=== PATIENT | male | born 1945 | race Caucasian/White ===

== ENCOUNTER 2017-03-27 11:47 | Inpatient (IN) | payer MEDICARE ==
[~2017-03-27] VITALS: Ht 182.9 cm; Wt 125.4 kg
[2017-04-11] MEDS ORDERED: LOSA100T PO (08:54)
[2017-04-11] MEDS ORDERED: ZETI10TA5 PO (08:54)
[2017-04-11] MEDS ORDERED: METO25TA3 PO (08:54)
[2017-04-11] MEDS ORDERED: METF500T PO (08:54)
[2017-04-28] MEDS ORDERED: LACTATED RINGER'S 1000 ML IV PRN (06:45)
[2017-04-28] MEDS ORDERED: DEXAMETHASONE SOD PHOS 20 MG/5 ML VIAL IV SCH (06:45)
[2017-04-28] MEDS ORDERED: VANCOMYCIN 1000 MG/NS 250 ML (for <70 kg) IV SCH ×2 (06:45)
[2017-04-28] MEDS ORDERED: SODIUM CHLORID 0.9% 500 ML IV PRN (06:45)
[2017-04-28] MEDS ORDERED: CHLORHEXIDINE GLUCONATE 2 % 1 PACK (2 CLOTHS) TOPICAL PRN (06:45)
[2017-04-28] MEDS ORDERED: METOPROLOL TARTRATE 25 MG TAB PO PRN (06:45)
[2017-04-28] MEDS ORDERED: POVIDONE IODINE 5% (ANTISEPSIS KIT) 4 APPLICATIONS EACH NARE PRN (06:45)
[2017-04-28] MEDS ORDERED: ceFAZolin 2 GM PREMIX 50 ML IV SCH (06:45)
[2017-04-28] MEDS ORDERED: INSULIN HUMAN REGULAR 1,000 UNITS/10 ML VIAL SQ PRN (06:45)
[2017-04-28] MEDS ORDERED: POVIDONE IODINE 7.5% SCRUB 118 ML BOTTLE TOPICAL SCH (06:45)
[2017-04-28] MEDS ORDERED: CHLORHEXIDINE GLUCONATE 4% SOLN 120 ML BTL TOPICAL SCH (06:45)
[2017-04-28] MEDS ORDERED: ASPI81CH37 CHEW (06:48)
[2017-04-28] MEDS ORDERED: ENOX40P SQ (06:48)
[2017-04-28] MEDS ORDERED: HYDR-3288 PO (06:49)
[2017-04-28] MEDS ORDERED: GENTAMICIN SULFATE 80 MG/2 ML VIAL ONE (06:55)
[2017-04-28] MEDS ORDERED: ROPIVACAINE PERI-ARTICULAR INJECTION. P-ARTICULR SCH ×5 (07:00)
[2017-04-28] MEDS ORDERED: TRANEXAMIC PERI-ARTICULAR 3,000 MG/NS 100 ML P-ARTICULR SCH ×2 (07:00)
[2017-04-28] MEDS ORDERED: SODIUM CHLORIDE 0.9% FLUSH 5 ML FLUSH IVF PRN (07:00)
[2017-04-28] MEDS ORDERED: Post-op Orders (for Pharmacy) MISC XX ONE (07:00)
[2017-04-28 07:05] VITALS: BP 164/77; PULSE 73; RESP 20; TEMP 98.7; O2SAT 96
[2017-04-28] MEDS ORDERED: ZOLPIDEM TARTRATE 5 MG TAB PO PRN (08:00)
[2017-04-28] MEDS ORDERED: ONDANSETRON HCL 4 MG/2 ML VIAL IVP PRN (08:00)
[2017-04-28] MEDS ORDERED: SODIUM CHLORIDE 0.9% IV SCH (08:00)
[2017-04-28] MEDS ORDERED: TRANEXAMIC ACID IV SCH (08:00)
[2017-04-28] MEDS ORDERED: diphenhydrAMINE HCL 50 MG/ML VIAL IV PRN (08:00)
[2017-04-28] MEDS ORDERED: BISACODYL 10 MG SUPP RECTAL PRN (08:00)
[2017-04-28] MEDS ORDERED: ACETAMINOPHEN/HYDROcodone 325 MG/7.5 MG TAB PO PRN (08:00)
[2017-04-28] MEDS: SODIUM CHLORIDE 0.9% FLUSH 5 ML FLUSH IVF SCH ×2 (09:00→22:03)
[2017-04-28] MEDS: METOPROLOL TARTRATE 25 MG TAB PO SCH ×2 (09:00→21:00)
[2017-04-28] MEDS: metFORMIN HCL 500 MG TAB PO SCH (09:00)
[2017-04-28] MEDS: LOSARTAN 50 MG TAB PO SCH (09:00)
[2017-04-28] MEDS ORDERED: DO NOT ADM ANY ANTICOAGULANT DRUGS PRN (10:30)
[2017-04-28] MEDS ORDERED: *morphine SULFATE 8 MG/ML PERIprocedure ONLY ONE ×2 (10:31→11:12)
[2017-04-28] MEDS ORDERED: fentaNYL CITRATE 250 MCG/5 ML AMP ONE (10:32)
[2017-04-28] MEDS: SODIUM CHLOR 0.9% 1000 ML INJ 1,000 ML IV SCH ×3 (11:00→23:55)
--- NOTE | 2017-04-28 11:03 | PD.CONS ---
HPI Service [facility] Hospitalists Consult Requested By Dr. Juwan Motley Reason for Consult Medical management Primary Care Physician Elian Aquino M.D. Diagnoses: History of Present Illness Mr. Luis is a pleasant 71 y/o male with HTN, diabetes mellitus, GERD and osteoarthritis who was admitted to [facility] on 04/28/17 for right total knee arthroplasty with Dr. Motley. Pt is seen post-operatively in the PACU. Vitals are stable. Ochoa catheter in place. Pts pain is currently controlled. Denies any chest pain, SOB, palpitations, dizziness, nausea or vomiting. Review of Systems Constitutional: DENIES: Fever, Chills Eyes: DENIES: Vision loss Respiratory: DENIES: Cough, Shortness of breath Cardiovascular: DENIES: Chest pain, Palpitations Gastrointestinal: DENIES: Abdominal pain, Nausea, Vomiting Genitourinary: DENIES: Hematuria Musculoskeletal: COMPLAINS OF: Joint pain Integumentary: DENIES: Rash Neurologic: DENIES: Headache Psychiatric: DENIES: Confusion Past Family Social History Past Medical History HTN Diabetes mellitus, type 2 GERD Hyperlipidemia Diverticulosis Hx of colon polyps Past Surgical History Umbilical hernia repair Colonoscopy Lumbar SURI Reported Medications -Zetia 10 Mg PO DAILY -Losartan 100 Mg PO DAILY -Metformin 500 Mg PO DAILY -Metoprolol Tartrate 25 Mg PO BID Allergies: Coded Allergies: No Known Allergies (Verified , 04/11/17) Family History Noncontributory Social History (+)Alcohol use, 2-3 beers, 2-3 times per week Hx of tobacco use, quit in the Pt is and lives locally with his 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 HEENT: Atraumatic. Normocephalic. No temporal or scalp tenderness.No scleral icterus. CARDIO: Regular. RESP: CTA bilaterally. No wheezes, rales, or rhonchi. ABD: +BS, soft, non-tender, nondistended. EXT: Right knee bandages are c/d/i NEURO: Awake and alert. Motor and sensory grossly within normal limits. Normal speech. Laboratory Laboratory Tests Test 04/28/17 07:00 Blood Type O POSITIVE Antibody Screen NEGATIVE Blood Bank Comment Assessment and Plan Problem List: (1) Primary localized osteoarthrosis, lower leg Status: Chronic Plan: - Pt s/p right total knee arthroplasty on 04/28/[address] motley - Post-op pain control per Ortho - IS - PT daily - Constipation precautions - DVT prophylaxis (2) HTN (hypertension) Status: Chronic Plan: - Home meds continued - Monitor (3) Diabetes mellitus Status: Chronic Plan: - NovoLog SSI - Metformin 500mg po BID resumed - Accu checks Problem Qualifiers (1) Primary localized osteoarthrosis, lower leg: Qualified Code: M17.11 - Primary localized osteoarthrosis of right lower leg (2) Diabetes mellitus: Akua Pineda Apr 28, 2017 11:03 Akua Pineda Apr 28, 2017 11:03
--- NOTE | 2017-04-28 11:27 | RADRPT ---
EXAM DATE/TIME: 04/28/2017 10:42 [place] COMPARISON: No previous studies available for comparison. INDICATIONS : Post op right knee prosthesis. MEDICAL HISTORY : None. SURGICAL HISTORY : right knee prosthesis ENCOUNTER: Initial ACUITY: 1 day PAIN SCORE: 4/10 LOCATION: Right knee FINDINGS: AP and lateral views of the right knee demonstrate changes consistent with recent total knee arthropl asty with metallic hardware in place in the distal femur and proximal tibia. There is a radiolucent p atellar component. There is a large joint effusion. There is soft tissue gas present, as expected. CONCLUSION: Expected findings following recent right total knee arthroplasty. A joint effusion is present. Shane Chavez MD on April 28, 2017 at 11:25 Board Certified Radiologist. This report was verified electronically.
[2017-04-28] MEDS ORDERED: ONDANSETRON HCL 4 MG/2 ML VIAL IV PUSH ONE (12:00)
[2017-04-28] MEDS ORDERED: PROPOFOL 200 MG/20 ML AMP IV ONE (12:00)
[2017-04-28] MEDS ORDERED: NEOSTIGMINE 3 MG/3 ML SYR IV ONE (12:00)
[2017-04-28] MEDS ORDERED: ePHEDrine/NS 25 MG/5 ML SYR IV ONE (12:00)
[2017-04-28] MEDS ORDERED: LACTATED RINGER'S 1000 ML INJ 1,000 ML IV ONE (12:00)
[2017-04-28] MEDS: ceFAZolin 2 GM PREMIX 50 ML IV SCH ×3 (13:20→23:55)
--- NOTE | 2017-04-28 13:37 | HHI.DCPOC ---
Discharge Care Plan Diagnosis: (1) Primary localized osteoarthrosis, lower leg Your Health Problems Are: Difficulty with ADL Goals to Promote Your Health * To prevent worsening of your condition and complications * To maintain your health at the optimal level Directions to Meet Your Goals Take your medications as prescribed Follow your dietary instruction Follow activity as directed Keep your appointments as scheduled Take your immunizations and boosters as scheduled If your symptoms worsen call your PCP, if no PCP go to Urgent Care Center or Emergency Room Smoking is Dangerous to Your Health. Avoid second hand smoke Call the 24-hour hour crisis hotline for domestic abuse at Juwan Contreras Apr 28, 2017 13:37
--- NOTE | 2017-04-28 13:38 | HHI.FF ---
Face to Face Verification Diagnosis: (1) Primary localized osteoarthrosis, lower leg Physical Therapy Safety evaluation, Transfer training, bed to chair Knee: Total knee, Protocol: Right, Full weight bearing Right LE Weight Bearing: WB as tolerated Nursing RN: 3 days/week x 2 weeks Nursing: Olivier teaching, Dressing changes Dressing Changes: Daily dressing change I have seen patient Shane LuisSr on 04/28/17. My clinical findings support the need for the requested home health care services because: Limited ability to care for self High risk of falls I certify that my clinical findings support that this patient is homebound because: Post-op weakness Unsteady gait/balance Juwan Contreras Apr 28, 2017 13:38
[2017-04-28] MEDS ORDERED: CPMMACHINE (13:39)
[2017-04-28] MEDS: MORPHINE SULFATE 4 MG/ML INJ IV PUSH PRN ×3 (14:05→22:02)
[2017-04-28 14:10] VITALS: BP 142/73; PULSE 82; RESP 18; TEMP 96.3; O2SAT 96
[2017-04-28 16:00] VITALS: BP 128/69; PULSE 81; RESP 18; TEMP 95.6; O2SAT 95
[2017-04-28 17:00] VITALS: O2SAT 96
[2017-04-28] MEDS: INSULIN ASPART SUPPLEMENTAL SCALE SQ SCH ×2 (18:33→22:03)
[2017-04-28 20:20] VITALS: BP 112/61; PULSE 80; RESP 18; TEMP 96.9; O2SAT 96
[2017-04-29] VITALS: BP 115/57; PULSE 70; RESP 18; TEMP 96.4; O2SAT 97
[2017-04-29 04:20] VITALS: BP 115/60; PULSE 74; RESP 18; TEMP 96.8; O2SAT 98
[2017-04-29] MEDS: SODIUM CHLOR 0.9% 1000 ML INJ 1,000 ML IV SCH (04:55)
[2017-04-29] MEDS: MORPHINE SULFATE 4 MG/ML INJ IV PUSH PRN (04:55)
[2017-04-29] MEDS: INSULIN ASPART SUPPLEMENTAL SCALE SQ SCH ×3 (05:04→16:00)
[2017-04-29 08:00] VITALS: BP 117/59; PULSE 71; RESP 18; TEMP 96.3; O2SAT 97
--- NOTE | 2017-04-29 08:39 | PD.ORT.PN ---
Subjective Post Op Day #: 1 Subjective Remarks knee sore. denies cp and sob. Objective Vitals Vital Signs Date Time Temp Pulse Resp B/P Pulse Ox O2 Delivery O2 Flow Rate FiO2 04/29/17 08:00 96.3 71 18 117/59 97 04/29/17 04:20 96.8 74 18 115/60 98 04/29/17 00:00 96.4 70 18 115/57 97 04/28/17 20:20 96.9 80 18 112/61 96 04/28/17 17:00 96 Nasal Cannula 2.00 04/28/17 16:00 95.6 81 18 128/69 95 04/28/17 14:27 18 04/28/17 14:10 96.3 82 18 142/73 96 04/28/17 13:00 97.7 74 18 123/61 98 Nasal Cannula 2 04/28/17 12:30 74 17 130/61 98 Nasal Cannula 2 04/28/17 12:00 72 18 129/62 97 Nasal Cannula 3 04/28/17 11:30 72 18 139/70 97 Nasal Cannula 3 04/28/17 11:15 75 16 138/67 97 Nasal Cannula 3 04/28/17 11:00 70 16 141/65 97 Nasal Cannula 3 04/28/17 10:45 77 16 149/68 97 Nasal Cannula 3 04/28/17 10:30 81 15 164/85 97 Nasal Cannula 3 04/28/17 10:26 98.3 82 16 171/74 98 Nasal Cannula 3 I/O 04/28/17 04/28/17 04/28/17 04/29/17 04/29/17 04/29/17 07:00 15:00 23:00 07:00 15:00 23:00 Intake Total 1600 ml 600 ml 240 ml Output Total 725 ml 325 ml 310 ml Balance 875 ml 275 ml -70 ml Intake Oral 600 ml 240 ml IV Total 300 ml Other 1300 ml Output Urine Total 625 ml 325 ml 310 ml Estimated Blood Loss 100 ml # Bowel Movements 0 Objective Remarks in bed, nad incision no erythema, no drainage neg homans nvi Assessment & Plan Ortho Post Op Day #: 1 Problem List: Assessment and Plan s/p R TKA wbat daily dressing changes lovenox d/c planning home with [facility] and pt - cleared today if does well with PT rx in chart f/up dr. livingston 2 weeks Juwan Contreras Apr 29, 2017 08:39
[2017-04-29] MEDS: METOPROLOL TARTRATE 25 MG TAB PO SCH (08:52)
[2017-04-29] MEDS: LOSARTAN 50 MG TAB PO SCH (08:52)
[2017-04-29] MEDS: metFORMIN HCL 500 MG TAB PO SCH (08:52)
[2017-04-29] MEDS: ACETAMINOPHEN/HYDROcodone 325 MG/7.5 MG TAB PO PRN ×2 (08:52→13:39)
[2017-04-29] MEDS: SODIUM CHLORIDE 0.9% FLUSH 5 ML FLUSH IVF SCH (08:56)
[2017-04-29 09:07] LABS: HEMATOCRIT 36.5 % (39.0-51.0); MEAN CELL VOLUME 94.2 FL (80.0-100.0); MEAN CORPUSCULAR HEMOGLOBIN 31.5 PG (27.0-34.0); MEAN CORPUSCULAR HGB CONC 33.4 % (32.0-36.0); PLATELET COUNT 181 TH/MM3 (150-450); RED BLOOD COUNT 3.87 MIL/MM3 (4.50-5.90); RED CELL DISTRIBUTION WIDTH 13.2 % (11.6-17.2); REVIEW FLAG FINAL; WHITE BLOOD COUNT 12.5 TH/MM3 (4.0-11.0)
[2017-04-29] MEDS ORDERED: ENOXAPARIN SODIUM 40 MG/0.4 ML SYRINGE SQ SCH (09:30)
[2017-04-29 09:32] LABS: BICARBONATE 29.2 MEQ/L (21.0-32.0); POTASSIUM 4.4 MEQ/L (3.5-5.1)
[2017-04-29 12:00] VITALS: BP 117/61; PULSE 67; RESP 18; TEMP 96.5; O2SAT 97
--- NOTE | 2017-04-29 15:15 | MP ---
cc: JENI FISH M.D. DATE OF SURGERY: 04/29/2017 PREOPERATIVE DIAGNOSIS: Right knee osteoarthritis POSTOPERATIVE DIAGNOSES Right knee osteoarthritis. PROCEDURE Right total knee arthroplasty SURGEON Dr. Jeni Fish. VP SOFTWARE SUPPORT: NOEMI nEriquez ANESTHESIA General with an adductor canal block. ESTIMATED BLOOD LOSS 50 cc. TOURNIQUET TIME: 54 minutes at 250 mmHg mercury IMPLANTS USED: Depuye Attune/Nine posterior stabilized femoral component size nine rotating platform tibia baseplate size 5 mm polyethylene tibial insert size 41 patella. JUSTIFICATION: This patient is a 71-year-old male with history is severe end-stage severe osteoarthritis involving the right knee. He has severe disabling pain on standing, walking, ambulation with activities and pain at rest. He has failed greater then two months of non-operative conservative treatment to include; medication, therapy, injections, and assisted active modification, home exercise program, weight loss. X-ray of the right knee reveal severe end-stage osteoarthritis with [id number] joint space narrowing, subchondral sclerosis, subchondral cyst, osteophyte formation with varus deformity. The patient counseled as and alternative total knee arthroplasty. The risks were discussed which included and were not limited to anesthesia, bleeding, infection damage to nerves, blood vessels, pain, pain with stiffness, failure of components, blood clots pulmonary embolism or even . The patient's pain is severe. Benefits over the risks and wish to surgery. A written consent was obtained. The patient identified by name, taken to the operating room and placed in the supine position. General anesthesia was administered as well as 2 grams of IV Ancef and 1 gram of IV vancomycin and did receive a adductor canal nerve block by the anesthesiologist. A well-padded tourniquet placed in the right thigh, the right lower extremity was prepped and draped using, Isopropyl alcohol, Hibiclens solution and Chloraprep solution after time-out was performed an Esmarch bandage was used to exsanguinate the right lower extremity and tourniquet was inflated at 250 mmHg. A large incision was made anterior aspect of the right knee medial parapatellar arthrotomy was performed the patella was everted, patellar resection guide was used to resect 9 mm of patella. The size 41 mm guide was placed, three drills were placed and 41 mm trial fit, attention was turned to femur where a intramedullary guide wire was placed in the distal femoral resection guide was set to remove 10 mm distal femur 5 degrees off the anatomic valgus axis alignment, and was used to perform the distal femoral cut. Attention turned to the tibia where extramedullary tibial guide was set to remove 6 mm of the lowest portion medial tibial plateau. The tibia guide was then placed tibia cut was performed. A 5-mm spacer block showed full extension. Attention turned back to the femur AP sizing block measured a size 9. The anterior reference external rotation guide was used to pin a size [address] The anterior and posterior chamfer cuts were performed. A size 9 PCL box cut was pinned and place. PCL box was cut with an oscillating saw. Medial lateral meniscus remnants were removed, as well as bone and soft tissue debris from posterior portion of the knee. A size 9 tibia baseplate was pinned in place. The tibia was drilled and punched. Trial components were evaluated and final components cemented in place. components the leg could extend to 0 degrees of flexion 140. No evidence of tibial lift-off. Varus-valgus balance appeared appropriate symmetric limits patella was then track centrally with the tourniquet deflated. Bovie cautery used for hemostasis. The surgical wounds were thoroughly irrigated with sterile saline, pulse lavage, antibiotic impregnated solution. The arthrotomy incision was closed with #1 Vicryl suture. Subcutaneous 2-0 Vicryl suture. Skin was closed Dermabond. Sterile dressings were applied. The patient tolerated this procedure well with no intraoperative complications noted. Indra Contreras physician talent assistant was present during the entire procedure to include patient positioning and the procedure itself. The medical necessity of the physician talent assistant was indicated due to complexity of the procedure. He assisted with manipulation leg and also retraction of muscle, tendon, bone marrow, and structures as well as preparation of bone and all cement implantation of prosthetic replacement. MD JESI Lopes/ramsey /10:00 AM /2:35 PM
[2017-04-29] MEDS ORDERED: MULTIVITAMINS/MINERALS THERAPEUTIC TAB PO SCH (21:00)
[2017-04-29] MEDS ORDERED: DOCUSATE SODIUM 100 MG CAP PO SCH (21:00)
== END 2017-04-29 16:20 | disposition home health service (06) | DRG 470 ==
LOC: HSDI 04-28 06:04 → N06B 04-28 13:36
PROVIDERS: ADMIT Orthopaedic Surgery Sports Medicine; ATTEND Orthopaedic Surgery Sports Medicine
PROC: 3E0T3BZ Introduction of Anesthetic Agent into Peripheral Nerves and Plexi, Percutaneous Approach (ICD-10-PCS; 2017-04-28)
PROC: 0SRC0J9 Replacement of Right Knee Joint with Synthetic Substitute, Cemented, Open Approach (ICD-10-PCS; principal; 2017-04-28 07:41)
DX: M17.11 Unilateral primary osteoarthritis, right knee (principal); E66.01 Morbid (severe) obesity due to excess calories; I10 Essential (primary) hypertension; K21.9 Gastro-esophageal reflux disease without esophagitis; E11.9 Type 2 diabetes mellitus without complications; Z79.84 Long term (current) use of oral hypoglycemic drugs; E78.5 Hyperlipidemia, unspecified; Z87.891 Personal history of nicotine dependence; Z86.010 Personal history of colon polyps; K57.90 Diverticulosis of intestine, part unspecified, without perforation or abscess without bleeding; Z68.37 Body mass index [BMI] 37.0-37.9, adult
CPT/HCPCS: 73560; 80048; 82948; 85027; 86850; 86900; 86901; 94150; C1776; J0171; J0690; J0735; J1100; J1580; J1650; J1815; J1885; J2270; J2405; J2710; J2795; J3010; J3370; J7030; J7050; J7120; L1830

== ENCOUNTER → 2017-04-11 | Outpatient (CLI) | payer MEDICARE ==
[~2017-04-11] MED LIST: LOSA100T PO; METF500T PO; METO25TA3 PO; ZETI10TA5 PO
[2017-04-11 09:31] LABS: BLOOD, URINE NEG (NEG); COMMENT (UR) CULT NOT INDICATED; CULTURE IF INDICATED CULT NOT INDICATED; GLUCOSE,URINE NEG (NEG); KETONE, URINE NEG (NEG); MUCUS URINE FEW /lpf (OCC); NITRITE,URINE NEG (NEG); PH, URINE 6.5 (5.0-8.5); URINE COLOR LIGHT-YELLOW (YELLW/STRAW)
[2017-04-11 09:32] LABS: AUTOMATED NEUTROPHIL # 4.6 TH/MM3 (1.8-7.7); BASOPHIL # 0.1 TH/MM3 (0-0.2); BASOPHIL % 1.3 % (0.0-2.0); EOSINOPHIL # 0.1 TH/MM3 (0-0.4); EOSINOPHIL % 1.5 % (0.0-4.0); HEMATOCRIT 45.1 % (39.0-51.0); HEMO FLAGS DIFF FINAL; LYMPH % 24.3 % (9.0-44.0); LYMPHOCYTE # 1.8 TH/MM3 (1.0-4.8); MEAN CELL VOLUME 93.2 FL (80.0-100.0); MEAN CORPUSCULAR HEMOGLOBIN 31.6 PG (27.0-34.0); MEAN CORPUSCULAR HGB CONC 33.9 % (32.0-36.0); MONO % 8.9 % (0.0-8.0); PLATELET COUNT 199 TH/MM3 (150-450); RED BLOOD COUNT 4.84 MIL/MM3 (4.50-5.90); RED CELL DISTRIBUTION WIDTH 13.1 % (11.6-17.2); WHITE BLOOD COUNT 7.3 TH/MM3 (4.0-11.0)
[2017-04-11 09:38] LABS: APTT (PATIENT) 33.2 SEC (24.3-30.1); PROTHROMBIN TIME - PATIENT 10.6 SEC (9.8-11.6)
[2017-04-11 09:55] LABS: WESTERGREN SEDIMENTATION RATE 10 mm/hr (0-20)
[2017-04-11 10:02] LABS: ALT (GPT) 44 U/L (12-78); ANION GAP 8 MEQ/L (5-15); AST (GOT) 23 U/L (15-37); BICARBONATE 24.1 MEQ/L (21.0-32.0); BLOOD UREA NITROGEN 11 MG/DL (7-18); CHLORIDE 104 MEQ/L (98-107); GLOMERULAR FILTRATION RATE 73 ML/MIN (>89); GLUCOSE,FASTING 136 MG/DL (74-99); POTASSIUM 3.9 MEQ/L (3.5-5.1); SODIUM (NA) 136 MEQ/L (136-145)
[2017-04-11 10:05] LABS: ALKALINE PHOSPHATASE 67 U/L (45-117); TOTAL BILIRUBIN ADULT 0.9 MG/DL (0.2-1.0)
--- NOTE | 2017-04-11 13:17 | EKG ---
Date Performed: 04/11/2017 Time Performed: 08:44:31 PTAGE: 71 years EKG: SINUS BRADYCARDIA BORDERLINE ECG No significant change from prior electrocardiogram. PREVIOUS TRACING : 06/14/2002 08.26 DOCTOR: Ethan Hampton Interpretating Date/Time 04/11/2017 13:17:19
== END ==
LOC: CPRE 08:25
PROVIDERS: ATTEND Orthopaedic Surgery Sports Medicine
DX: Z01.812 Encounter for preprocedural laboratory examination (principal); Z01.810 Encounter for preprocedural cardiovascular examination; M17.11 Unilateral primary osteoarthritis, right knee; M25.50 Pain in unspecified joint; R94.31 Abnormal electrocardiogram [ECG] [EKG]; Z96.60 Presence of unspecified orthopedic joint implant; Z79.01 Long term (current) use of anticoagulants
CPT/HCPCS: 36415; 80053; 81001; 85025; 85610; 85652; 85730; 93005